=== PATIENT | female | born 1980 | race Two or more races ===

== ENCOUNTER → 2024-08-08 | Outpatient (CLI) | payer BC, SELFPAY ==
--- NOTE | 2024-08-08 | XR_ITS ---
Examination: Diagnostic digital mammography, unilateral, right Computer aided detection 3-D breast Tomosynthesis, unilateral Date and time of exam: August 09, 1999 2512 noon Compared to mammograms dating to 11/24/2019 INDICATIONS: Mammogram 01/04/2024 focal asymmetry inner right breast remains on the CC view: Technique: Nonmagnified MLO, CC views of the right breast have been obtained, reconstructed from 3-D Tomosynthesis images. R2 computer aided detection program utilized for evaluation of suspicious masses and/or abnormal calcifications. 3-D Tomosynthesis images obtained. Findings: The breast is heterogeneously dense, which may obscure small masses No current suspicious mass Implant intact IMPRESSION:: BI-RADS category 2: Benign findings Return to yearly follow-up mammography
== END | disposition home or self-care (01) ==
LOC: CDIM 10:50
PROVIDERS: Referring Provider Family Medicine; Visit Provider Family Medicine
DX: Z12.39 Encounter for other screening for malignant neoplasm of breast (principal); R92.321 Mammographic fibroglandular density, right breast
CPT/HCPCS: 77061; 77065; G0279

== ENCOUNTER 2024-12-30 06:30 | Day surgery (SDC) | payer BC, SELFPAY ==
[2024-12-26 11:43] VITALS: BMI 32.0
[2024-12-26 14:14] LABS: Basophils # (Auto) 0.1 Thou/mm3 (0.0-0.2); Basophils % (Auto) 1 % (0-2.5); Eosinophils # (Auto) 0.3 Thou/mm3 (0.0-0.5); Eosinophils % (Auto) 4 % (0-10); Hematocrit 40.2 % (36.0-46.0); Hemoglobin 13.5 g/dL (12.0-16.0); Immature Granulocytes Auto 0.03 Thou/mm3 (0.00-0.00); Lymphocytes # (Auto) 2.8 Thou/mm3 (1.0-4.8); Lymphocytes % (Auto) 33 % (10-50); Mean Corpuscular HGB Conc 33.6 g/dl (31.0-37.0); Mean Corpuscular Hemoglobin 29.0 pg (25.0-35.0); Mean Corpuscular Volume 87 fL (80-100); Monocytes # (Auto) 0.5 Thou/mm3 (0.0-0.8); Monocytes % (Auto) 6 % (0-12); Neutrophils # (Auto) 4.7 Thou/mm3 (1.8-7.7); Neutrophils % (Auto) 57 % (37-80); Nucleated Red Blood Cell # 0.00 Thou/mm3 (0.00-0.00); Nucleated Red Blood Cell % 0 /100 WBC (0); Platelet Count 323 Thou/mm3 (140-440); RDW Standard Deviation 39.9 fL (36.4-46.3); Red Blood Count 4.65 Miln/mm3 (4.00-5.20); White Blood Count 8.3 Thou/mm3 (3.6-11.0)
[2024-12-26 14:21] LABS: INR 1.0 (0.9-1.3); Partial Thromboplastin Time 28.4 Seconds (22.0-36.0); Prothrombin Time 10.3 Seconds (9.0-12.2)
[2024-12-26 14:36] LABS: Alanine Aminotransferase 10 U/L (10-49); Albumin, Serum 5.0 gm/dL (3.5-5.0); Anion Gap 9 (7-16); Aspartate Amino Transferase 17 U/L (0-34); BUN/Creatinine Ratio 14 Ratio (12-20); Bilirubin,Total 0.7 mg/dL (0.3-1.2); Blood Urea Nitrogen 11 mg/dL (9-23); Calcium 9.4 mg/dL (8.3-10.6); Calcium (Corrected) 9.4 mg/dL (8.5-10.1); Carbon Dioxide 26.2 mMol/L (20.0-31.0); Chloride 107 mMol/L (98-107); Creatinine (Component) 0.8 mg/dL (0.6-1.3); Estimated Creatinine Clearance 72.3 mL/min (>60); Globulin 2.1 gm/dL (2.3-3.5); Glucose 113 mg/dL (74-106); Osmolality,Calculated 283 (275-295); Potassium 5.0 mMol/L (3.4-5.1); Sodium 142 mMol/L (136-145); Total Protein 7.1 gm/dL (5.7-8.2); eGFR > 60 See Note
[2024-12-26 14:37] LABS: Albumin/Globulin Ratio 2.4 (1.2-2.2); Alkaline Phosphatase 72 U/L (46-116); Beta HCG,Quantitative < 1 mIU/mL (<5.0)
--- NOTE | 2024-12-27 09:10 | ESHP_ITS ---
RE: OLINDA JERRY : 1980 DATE OF ADMISSION: 12/30/2024 DATE OF SURGERY: 12/30/2024 This is a 44-year-old 3, para 3 with abnormal uterine bleeding, dysmenorrhea and endometrial polyp, who presents for endometrial ablation and polyp removal. ALLERGIES: ORILISSA. MEDICATIONS: 1. Spironolactone 25 mg 1 p.o. daily. 2. Ferrous sulfate 325 mg 1 p.o. daily. Arnold-Chiari malformation type 1. Preeclampsia. Multiple sclerosis. Cervical dysplasia. Anxiety. Palpitations with negative echocardiogram and Holter monitoring. Common migraine. Endometriosis. Adenomyosis. Iron deficiency anemia. FAMILY HISTORY: Paternal grandmother has lung cancer. Maternal aunt has colon cancer. Father has diabetes and hypertension. Mother has hypertension. Maternal grandfather heart disease. Maternal uncle hypothyroidism. OBSTETRIC HISTORY: In 2005, 34-week normal vaginal delivery, 2-euulb-4-ounce male, complicated by preeclampsia. In 2012, 38 weeks delivery, 4-kxvno-5-ounce male, no complications. In 2014, 39 weeks delivery of 4-yrfso-6-ounce male, no complications. PAST SURGICAL HISTORY: delivery 2012 and 2014 and cholecystectomy. REVIEW OF SYSTEMS: She denies any chest pain, palpitations, cough, fever, flank pain, shortness of breath or lower extremity pain. PHYSICAL EXAMINATION: VITAL SIGNS: Blood pressure is 132/74, heart rate 88, respirations 18, temperature 98.6. HEENT: Oropharynx and sclerae are clear. LUNGS: Clear to auscultation bilaterally. HEART: Regular rate and rhythm. ABDOMEN: Nontender. EXTREMITIES: Nontender. SKIN: No gross rashes or lesions. NEUROLOGIC: No focal deficit. ASSESSMENT: Abnormal uterine bleeding. Endometrial polyp. PLAN: Hysteroscopy, MyoSure removal of endometrial polyp, fractional dilatation and curettage and NovaSure endometrial ablation. Informed consent was obtained. The patient was made aware of the risks, complications, alternative and benefits of the proposed procedure and she agrees. She is aware of the risk of injury to bowel, bladder, adjacent organs, pulmonary embolism, deep vein thrombosis, pelvic infection, re-operation to repair injury to internal organs, anesthesia complications, the possibility that a laparotomy needs to be performed to repair organs and control bleeding and the possibility the procedure is not able to be completed due to severe adhesions and technical difficulties. DT: 08:38:33 TT: 09:08:00 Ref: [id number] - TID: [id number] MTDD
[2024-12-30] VITALS (7 sets, daily range): BP systolic 134–148; BP diastolic 83–101; PULSE 79–94; RESP 15–22; TEMP 36.2–36.3; O2SAT 97–100; BMI 31.6
--- NOTE | 2024-12-30 09:25 | SUR.PHASEI ---
pt received from OR in recovery bay 5. pt asleep but responds to voice, breathing unlabored on 3l nc. v/s stable. pt dressing peripad cdi. report received from Jennifer Alfred and Grabiel TALAMANTES.
--- NOTE | 2024-12-30 09:33 | PD.GYNPROC ---
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 Date of procedure: 12/30/24 Procedure Performed: Hysteroscopy MyoSure removal of endometrial polyp Fractional dilatation and curettage NovaSure endometrial ablation Indication: Abnormal uterine bleeding Endometrial polyp Pre-Op diagnosis: Abnormal uterine bleeding Endometrial polyp Post-Op diagnosis: Abnormal uterine bleeding Endometrial polyp Anesthesia type: General Procedure description: After proper informed consent was obtained and the patient made aware of the risk complications alternatives and benefits of the proposed procedure she was taken to the operating room where she underwent induction of general anesthesia.? She was placed in the dorsal lithotomy position and prepped and draped the usual sterile fashion.? A timeout was performed.? A bivalve speculum was inserted.? A single-tooth tenaculum was used to grasp the anterior lip of the cervix.? The uterine cavity was sounded to 10 cm.?The cervix was dilated to accommodate the 5.5 mm Omni hysteroscope.? Using the Aquilex system and normal saline as the distending media the hysteroscopy was performed and a 5 x 5 mm endometrial polyp was seen on the posterior uterine cavity. Using the MyoSure Reach device the polypectomy was performed and specimen sent to pathology. The fluid deficit at the end of the MyoSure procedure was 90 cc.? The endocervix was curetted with the Kevorkian curette and specimen sent to pathology.? The uterine cavity was curetted with a 5 mm curette and specimen sent to pathology.? The NovaSure catheter was plugged into the controller.? It went through its purge cycle.? The array was deployed and was found to be complete and intact with the width meter working properly. The Novasure catheter was appropriately seated in the uterine cavity.? The cavity length was 6.0 cm, ?the cavity width was 3.3 cm the power setting was 109 W.? The carbon dioxide cavity integrity assessment test was performed.? The uterine cavity was intact.? The controller was enabled and the ablation was performed for a total of 67 seconds before the controller shut off.? The array was retracted into the sheath and the catheter was removed from the uterine cavity.? The array was redeployed and found to be complete and intact.? There was bleeding at the anterior lip of the cervix at the site of the tenaculum and using the Bovie cautery hemostasis was achieved.? There was no bleeding at the end of the procedure.? All instruments were removed from the vagina.? She was reversed from general anesthesia in supine position and transferred to the cover room in stable condition.? She tolerated the procedure well.? Counts were correct.? I discussed with the patient's family the nature of her condition, the intraoperative findings, the expectation for recovery, all questions answered. Specimen: other (1. endometrial polyp 2. endocervical currettings 3. endometrial curettings.) Estimated blood loss (ml): 5 Findings: Uterus sounded to 10.0 cm anteverted Cervical length was 4.0 cm Uterine cavity length was 6.0 cm Uterine cavity width was 3.3 cm Duration of ablation was 1 minute and 7 seconds Power setting was 109 W Endometrial polyp found posterior lower uterine segment measuring 5 x 5 mm No endocervical canal lesions were noted Fluids observed hysteroscopically normal saline 90 cc Complications: none Surgical staff Dr Yoder anesthesiologist Dr Armstrong Surgeon Operation Date: 12/30/24 08:45 <No data on this case meets the specified criteria> Diagnosis Problem List Completed Was Problem List Reviewed/Reconciled?: Yes
[2024-12-30] MEDS: ACETAMINOPHEN IVPB 1,000 MG/100 ML VIAL 250 MG IV (09:39)
--- NOTE | 2024-12-30 10:15 | SUR.PHASEII ---
pt able to tolerate oral fluids without difficulty swallowing or nausea/vomiting.
--- NOTE | 2024-12-30 10:25 | SUR.PHASEII ---
pt awake and alert, breathing unlabored on room air. v/s stable. pt dressing peripad cdi. pt able to ambulate to wheelchair with steady gait. d/c instructions given with son Joel in room, all questions answered. pt d/c via wheelchair with all belongings.
== END 2024-12-30 10:25 | disposition home or self-care (01) ==
PROVIDERS: PCP Family Medicine; Referring Provider Specialist; Visit Provider Specialist
PROC: 0U5B8ZZ Destruction of Endometrium, Via Natural or Artificial Opening Endoscopic (ICD-10-PCS; CPT 58563; principal; 2024-12-30 08:30)
DX: N84.0 Polyp of corpus uteri (principal); N93.9 Abnormal uterine and vaginal bleeding, unspecified
CPT/HCPCS: 58563; 36415; 80053; 84702; 85025; 85610; 85730; 86850; 86900; 86901; A4217; A4649; J0131; J0690; J1100; J2250; J2405; J2704; J2765; J3010; J3490